=== PATIENT | female | born 2000 | race Caucasian/White ===

== ENCOUNTER 2024-07-09 13:43 | Outpatient (AMB) | payer MEDICAID, SELFPAY ==
[2024-07-09 14:22] VITALS: BP 146/100; PULSE 94; RESP 18; TEMP 36.2; O2SAT 97; BMI 39.2
--- NOTE | 2024-07-09 14:22 | AMB.GYNCLNOT ---
Vital Signs 07/09/24 14:22 Height 1.6 m Height Method Stated Weight 100.471 kg Weight Measurement Method Standing Scale BMI 39.2 BP 146/100 H Blood Pressure Source Automatic Cuff Blood Pressure Location Left Upper Arm Position Sitting Respiration 18 Pulse 94 Pulse Source Monitor Temp 97.2 F Temp Source Oral Pulse Oximetry (%) 97 Oxygen Delivery Method Room Air Allergies/Home Meds Allergies & Medications Allergies amoxicillin Allergy (Unknown, Verified 07/09/24 14:23) RASH lactose Allergy (Unknown, Verified 07/09/24 14:23) VOMITING Medication Reconciliation clindamycin HCl 300 mg capsule 300 mg PO TID #21 caps 05/08/22 [Rx Confirmed 07/09/24] metformin 500 mg tablet 500 mg PO QDAY 90 days #90 tabs 07/09/24 [Rx] norethindrone 1 mg-ethinyl estradiol 20 mcg (24)-iron 75 mg (4) tablet () 1 tab PO QDAY 84 days #84 tabs 07/09/24 [Rx] Intake Visit Data Collection New Patient or Established: Established Patient (seen at [facility] within 3 years) Reason for Visit:: REFERRAL [employer] Manager Required: No Do You Feel Safe at Home: Yes Authorities Contacted: N/A PCP or OBGYN visit in last 3 months: Yes Hx Now: No Are you currently on any form of Control: No Last menstrual period: 06/15/24 Pain Present Currently: No Pain Scale Used: Mcmahan-Miranda/Numerical Pain scale:: 0 Smoking Status Smoking Status: Never smoker Feed In Worker history Feed In Worker History Menstrual regularity: irregular Flow: heavy Monthly: Yes Age at menarche: 11 Menopausal: No 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 1. Little interest or pleasure in doing things: not at all 2. Feeling down, depressed, or hopeless: not at all Total score: 0 PHQ-9 3. Trouble falling or staying asleep, or sleeping too much: Not at all 4. Feeling tired or having little energy: Not at all 5. Poor appetite or overeating: Not at all 6. Feeling bad about yourself - or that you are a failure or have let yourself or your family down: Not at all 7. Trouble concentrating on things, such as reading the newspaper or watching television: Not at all 8. Moving or speaking so slowly that other people could have noticed? - Or the opposite - being so fidgety or restless that you have been moving around a lot more than usual: not at all 9. Thoughts that you would be better off or of hurting yourself in some way: Not at all Total score: 0 If you checked off any problems, how difficult have these problems made it for you to do your work, take care of things at home, or get along with other people?: not difficult at all Source: Developed by Drs. Miguel Baker, Lisseth Mondragon, Devante Monroy and colleagues, with an educational gala from [employer]. Depression screen completed yes Social History Living Situation History Marital Status: Single Lives With: Family Housing: House Tobacco History Smoking Status: Never smoker Second Hand Smoke Exposure: No Alcohol History Alcohol Intake: Never Domestic Abuse History Do You Feel Safe at Home: Yes History of Present Illness HPI Narrative Patient is a 27-year-old female referred by her primary care provider for evaluation of suspected polycystic ovary syndrome (PCOS). She presents with a history of irregular menstrual cycles, heavy menstrual flow, and recent weight gain. Patient reports menarche at age 11 with irregular cycles since then. Her most recent menstrual cycle started on June 15, 2024, following a prolonged absence of menses since January 2024. She describes her menstrual flow as heavy. Patient also reports excessive facial hair growth, which she manages by waxing, and significant hair loss from her scalp. She has experienced recent weight gain, noting an increase of approximately 20 pounds over the past year, moving from the 190s to over 200 pounds. Patient is currently sexually active with one partner. Patient was previously on control pills for a few years while taking Accutane. She reports that after discontinuing both medications, her menstrual cycles became irregular and she experienced more weight gain. Patient has recently made dietary changes, eliminating juice, soda, and fast food from her diet, and increasing her intake of vegetables and water. Patient's obstetric history is A0 L0. She has a medical history of previously diagnosed PCOS. Patient is not currently on any medications, having discontinued oral contraceptive pills and Accutane, which led to irregular periods and weight gain when stopped. Review of Systems Review of Systems Systems Reviewed: All systems reviewed, normal except as documented Exam General General Appearance: alert, in no apparent distress and healthy appearing Head Head exam: atraumatic Neck Neck exam: Present normal inspection and trachea midline Chest Chest inspection: Present normal inspection and symmetric chest wall rise External exam: Present normal external exam; Absent tenderness Neuro Neurological exam: Present oriented X3 Psych Psychiatric exam: Present normal affect and normal mood Results Objective Laboratory: - DHEA: 827 ng/dL (elevated) - Testosterone: 62 - CBC: Hemoglobin 14.7 g/dL - CMP: Within normal limits - Hepatic transaminases: AST 37, ALT 64 (elevated) - Triglycerides: Elevated (value not specified) - TSH: Within normal limits - Free T4: Within normal limits - HCG: Negative - Estradiol: 37.9 (normal range) - A1c: 5.7% Imaging: Pelvic ultrasound (05/17/2024): - Uterus: Normal size and echogenicity - Length: 8.5 cm - AP diameter: 2.56 cm - Transverse diameter: 4.8 cm - Endometrial stripe: Normal, 2 mm - Ovaries: Normal appearance - Multiple small cysts present in both ovaries - Cyst size: 0.8 cm or less - Number of cysts: 3-5 in each ovary Office Procedures OB Clinic LOC & Office Proc's Nursing/Assessment Patient Status: Established Patient OB Clinic Nursing Assessment: Medication Reconciliation, Update PMH in EMR and Vital Signs OB Clinic Coordination of Care: Complex Care and Chronic Disease 1-5, Education Complex Pt/Fam, Consent,records obtained, informed consent, Results/Orders obtained and Staff clarify orders Established Patient Charge Established Patient Point Assignment: 95 Established Patient Point Charge: EP Level 3 (80-115) Assessment & Plan Diagnosis / Problem List (1) PCOS (polycystic ovarian syndrome): Status: Acute (2) Abnormal uterine and vaginal bleeding, unspecified: Status: Acute Plan Polycystic Ovary Syndrome (PCOS): - Confirmed PCOS diagnosis based on [place] criteria. - Patient has irregular menstrual cycles, last menstruation in January 2024, current cycle started 06/15/2024. - Elevated DHEA at 827 ng/dL (diagnostic threshold >300 ng/dL). - Pelvic ultrasound on 05/17/2024 showed multiple small cysts (0.8 cm or less) in both ovaries. - Clinical symptoms: facial hair growth, excessive hair loss, recent weight gain of ~20 pounds in past year. - Metabolic concerns: elevated hepatic transaminases (37 and 64), elevated triglycerides, A1c 5.7% (pre-diabetes). - Patient not currently trying to conceive, may consider in 1-2 years. Plan: - Initiate oral contraceptive pills to regulate menstrual cycles and suppress endogenous hormone production. - Start Metformin for metabolic effects (improve insulin sensitivity, aid weight loss, manage cholesterol). - Provide patient education on PCOS, its metabolic effects, and importance of lifestyle modifications. - Recommend low-carbohydrate diet, focus on whole grains, fruits, vegetables; avoid refined sugars and processed foods. - Advise 20 minutes of daily exercise. - Order follow-up labs in 3 months to monitor hormone levels and metabolic parameters. - Schedule follow-up appointment in 3 months to review lab results and assess treatment efficacy. - Provide lab slip for pre-appointment testing. - Consider ovarian drilling as future option if medical management ineffective.
== END 2024-07-09 14:43 | disposition home or self-care (01) ==
LOC: HODSOBC 13:43
PROVIDERS: PCP Registered Nurse Community Health; Referring Provider Registered Nurse Community Health; Supervising Provider Obstetrics & Gynecology; Visit Provider Obstetrics & Gynecology
DX: E28.2 Polycystic ovarian syndrome (principal); N93.9 Abnormal uterine and vaginal bleeding, unspecified
CPT/HCPCS: 99213; G0463

== ENCOUNTER → 2024-12-05 | Outpatient (CLI) | payer MEDICAID, SELFPAY ==
[2024-12-04 08:59] LABS: HCG Qualitative,Urine Negative
--- NOTE | 2024-12-05 09:00 | XR_ITS ---
Examination: CT abdomen with intravenous contrast CT pelvis with intravenous contrast 2-D coronal reconstructions 2-D sagittal reconstructions Date and time of exam: December 05, 2024, 1032 hours INDICATIONS: Elevated DHEA values on laboratory examination this month. CTDI: vol (mGy) 9.83 DLP: (mGycm) 558 Technique: Multiple axial sections of the abdomen and pelvis have been obtained. 64 slice high-resolution scanner used. 3 mm axial sections have been obtained, post intravenous injection 60 cc Isovue 370 2-D sagittal, coronal reconstructions obtained. Low dose protocols were performed. One or more of the following dose reduction techniques were used; automated exposure control, adjustment of the mA and/or KV according to patient size, use of iterative reconstruction technique. Findings: Diffuse fatty infiltration throughout the liver no focal liver or splenic lesions No gallstones No pancreatic mass Normal adrenal glands No renal or ureteral calculi, no hydronephrosis Aorta normal size Normal appendix. No bowel obstruction No diverticulitis No adnexal or uterine mass Urinary bladder intact Intact osseous structures IMPRESSION: Diffuse fatty infiltration throughout the liver Normal adrenal glands No renal or ureteral calculi, no hydronephrosis Normal appendix
== END | disposition home or self-care (01) ==
LOC: SCAT 08:34
PROVIDERS: Referring Provider Specialist; Visit Provider Specialist
DX: K76.0 Fatty (change of) liver, not elsewhere classified (principal); Z32.00 Encounter for pregnancy test, result unknown
CPT/HCPCS: 74177; 81025; A4649; Q9967